=== PATIENT | female | born 1950 | race Caucasian/White ===

== ENCOUNTER 2016-05-08 07:59 | Emergency (ER) | payer OTHER ==
[~2016-05-08] VITALS: Ht 167.6 cm; Wt 63.5 kg
[~2016-05-08 07:59] MED LIST: AZIT250T PO; DEXT15DR5 EACHEYE; FLUT9.9S NS; PRED-220 PO; PRED20TA PO
[2016-05-08] MEDS ORDERED: IV NORMAL SALINE 1000ML BAG 1,000 ML IV ONE (08:45)
[2016-05-08] MEDS ORDERED: DEXAMETHASONE SOD PHOS 20 MG/5 ML VIAL. IV ONE (08:45)
[2016-05-08] MEDS ORDERED: FENTANYL PF 100 MCG/2 ML VIAL. IV ONE (08:45)
--- NOTE | 2016-05-08 08:56 | PHYS DOC ---
Past Medical History Past Medical History: Arthritis, Constipation, Hypertension Past Surgical History: Cholecystectomy Additional Past Surgical Histo: Kidney Stents x3, Rt shoulder surgery, and left carpal tunnel Alcohol Use: None Drug Use: None Adult General Chief Complaint Chief Complaint: HEADACHE HPI HPI Patient is a 65 year old female with history of arthritis, hypertension, constipation, who presents today with 8 out of 10 frontal headache that began yesterday afternoon. Patient states the headache began gradually. Patient denies any vision changes with a headache. She states she has some light sensitivity and nausea with the headache. Patient denies this being the worst headache in her life. Patient states she has had nasal congestion for almost 2 weeks. Patient was seen in the ED last week and was diagnosed with left bells palsy and was treated with prednisone. She states she still has some droopiness on the right side of the face but is improving. Patient denies any vomiting but she states she has some nausea. Denies any chest pain or shortness of breath. PCP is Dr. Garcia Review of Systems Review of Systems Constitutional: Denies fever or chills [] Eyes: Denies change in visual acuity, redness, or eye pain [] HENT: Denies nasal congestion or sore throat [] Respiratory: Denies cough or shortness of breath [] Cardiovascular: No additional information not addressed in HPI [] GI: nausea, : Denies dysuria or hematuria [] Musculoskeletal: Denies back pain or joint pain [] Integument: Denies rash or skin lesions [] Neurologic: headache, Endocrine: Denies polyuria or polydipsia [] Current Medications Current Medications Current Medications Medications (Trade) Dose Ordered Sig/Carlito Start Time Stop Time Status Last Admin Dose Admin Clonidine HCl (Catapres) 0.2 mg 1X ONCE 05/08/16 10:45 05/08/16 10:53 DC 05/08/16 10:57 0.2 MG Dexamethasone Sodium Phosphate (Decadron) 10 mg 1X ONCE 05/08/16 08:45 05/08/16 08:49 DC 05/08/16 09:29 10 MG Fentanyl Citrate 50 mcg 50 mcg 1X ONCE 05/08/16 08:45 05/08/16 08:49 DC 05/08/16 09:30 50 MCG Oxymetazoline HCl (Afrin) 2 spray 1X ONCE 05/08/16 11:15 05/08/16 11:16 DC Sodium Chloride (Iv Sodium Chloride 0.9% 1000ml Bag) 1,000 ml @ 1,000 mls/hr 1X ONCE 05/08/16 08:45 05/08/16 09:44 DC 05/08/16 09:30 1,000 MLS/HR Allergies Allergies Allergies Coded Allergies Type Severity Reaction Last Updated Verified No Known Drug Allergies 04/26/16 No Physical Exam Physical Exam Constitutional: Well developed, well nourished, no acute distress, non-toxic appearance. [] HENT: Normocephalic, atraumatic, bilateral external ears normal, oropharynx moist, no oral exudates, nose normal. [] Eyes: PERRLA, EOMI, conjunctiva normal, no discharge. [] Neck: Normal range of motion, no tenderness, supple, no stridor. [] Cardiovascular:Heart rate regular rhythm, no murmur [] Lungs & Thorax: Bilateral breath sounds clear to auscultation [] Abdomen: Bowel sounds normal, soft, no tenderness, no masses, no pulsatile masses. [] Skin: Warm, dry, no erythema, no rash. [] Back: No tenderness, no CVA tenderness. [] Extremities: No tenderness, no cyanosis, no clubbing, ROM intact, no edema. [] Neurologic: Alert and oriented X 3, normal motor function, normal sensory function, no focal deficits noted. Cranial nerves II-XII intact. Slight left facial drop noted on exam from Vick's palsy. Psychologic: Affect normal, judgement normal, mood normal. [] Current Patient Data Vital Signs Vital Signs Date Time Temp Pulse Resp B/P Pulse Ox O2 Delivery O2 Flow Rate FiO2 05/08/16 10:57 63 176/92 05/08/16 10:22 14 99 05/08/16 09:30 Room Air 05/08/16 08:20 97.9 97.9 Lab Values Laboratory Tests Test 05/08/16 09:18 05/08/16 09:20 05/08/16 10:30 Group A Streptococcus Rapid Negative (NEGATIVE) White Blood Count 6.2x10^3/uL (4.0-11.0) Red Blood Count 4.69x10^6/uL (3.50-5.40) Hemoglobin 13.2g/dL (12.0-15.5) Hematocrit 39.5% (36.0-47.0) Mean Corpuscular Volume 84fL (79-100) Mean Corpuscular Hemoglobin 28pg (25-35) Mean Corpuscular Hemoglobin Concent 33g/dL (31-37) Red Cell Distribution Width 14.7% (11.5-14.5) H Platelet Count 257x10^3/uL (140-400) Neutrophils (%) (Auto) 63% (31-73) Lymphocytes (%) (Auto) 23% (24-48) L Monocytes (%) (Auto) 9% (0-9) Eosinophils (%) (Auto) 4% (0-3) H Basophils (%) (Auto) 1% (0-3) Neutrophils # (Auto) 3.9x10^3uL (1.8-7.7) Lymphocytes # (Auto) 1.4x10^3/uL (1.0-4.8) Monocytes # (Auto) 0.6x10^3/uL (0.0-1.1) Eosinophils # (Auto) 0.3x10^3/uL (0.0-0.7) Basophils # (Auto) 0.0x10^3/uL (0.0-0.2) Prothrombin Time 13.3SEC (11.7-14.0) Prothrombin Time INR 1.1 (0.8-1.1) Sodium Level 141mmol/L (136-145) Potassium Level 3.8mmol/L (3.5-5.1) Chloride Level 107mmol/L (98-107) Carbon Dioxide Level 31mmol/L (21-32) Anion Gap 3 (6-14) L Blood Urea Nitrogen 17mg/dL (7-20) Creatinine 0.8mg/dL (0.6-1.0) Estimated GFR (Cockcroft-Gault) 71.8 BUN/Creatinine Ratio 21 (6-20) H Glucose Level 85mg/dL (70-99) Calcium Level 8.6mg/dL (8.5-10.1) Magnesium Level 2.3mg/dL (1.8-2.4) Total Bilirubin 0.9mg/dL (0.2-1.0) Aspartate Amino Transferase (AST) 22U/L (15-37) Alanine Aminotransferase (ALT) 24U/L (14-59) Alkaline Phosphatase 71U/L (46-116) Creatine Kinase 91U/L (26-192) Creatine Kinase MB (Mass) 1.2ng/mL (0.0-3.6) Creatine Kinase MB Relative Index 1.3% (0-4) Troponin I Quantitative < 0.017ng/mL (0.000-0.055) JD-Cdu-U-Type Natriuretic Peptide 67pg/mL (0-124) Total Protein 6.3g/dL (6.4-8.2) L Albumin 3.3g/dL (3.4-5.0) L Albumin/Globulin Ratio 1.1 (1.0-1.7) Lipase 158U/L (73-393) Urine Collection Type Unknown Urine Color Yellow Urine Clarity Cloudy Urine pH 7.5 Urine Specific [place] 1.010 Urine Protein Negativemg/dL (NEG-TRACE) Urine Glucose (UA) Negativemg/dL (NEG) Urine Ketones (Stick) Negativemg/dL (NEG) Urine Blood Negative (NEG) Urine Nitrite Negative (NEG) Urine Bilirubin Negative (NEG) Urine Urobilinogen Dipstick 0.2mg/dL (0.2 mg/dL) Urine Leukocyte Esterase Negative (NEG) Urine RBC 0/HPF (0-2) Urine WBC Occ/HPF (0-4) Urine Bacteria Few/HPF (0-FEW) Laboratory Tests 05/08/16 09:20 Laboratory Tests 05/08/16 09:20 EKG EKG [] Radiology/Procedures Radiology/Procedures [] Course & Med Decision Making Course & Med Decision Making Pertinent Labs and Imaging studies reviewed. (See chart for details) Patient is in the ED with a headache that began yesterday. Patient denies this being the worst headache in her life. She has had nasal congestion for almost 2 weeks, she was seen in the ED a week ago and was diagnosed with [place] palsy and was discharged on prednisone. 09:[address] Bruce sinus rate them, heart rate 66, leftward axis, QRS interval 84, no STEMI. CBC BMP troponin CK-MB are normal, chest x-ray and CT of the head interpreted by radiologist are negative for any acute findings. Patient's headache is consistent with a sinus headache especially with her history of nasal congestion for 2 weeks. She was treated with antibiotics. She just completed a dose of prednisone. Her blood pressure was noted to be in the 190s over 90, she states she used to have history of hypertension was on medication and her PCP took her off the medication. I highly recommended she follows up with the PCP in the next 1-3 days to be evaluated for her symptoms including possibility of hypertension. Dr. Bruce also saw patient. She was discharged with Afrin. She was provided return precautions and discharged in stable condition. Dragon Disclaimer Dragon Disclaimer This electronic medical record was generated, in whole or in part, using a voice recognition dictation system. Departure Departure Impression: Primary Impression: Sinusitis Additional Impression: Headache Disposition: HOME, SELF-CARE Condition: STABLE Referrals: CARMITA GARCIA MD (PCP) follow up with your primary care doctor in the next 1-3 days JACKIE LUNA MD see him in the next 1-3 days Patient Instructions: General Headache Without Cause, Sinus Headache Additional Instructions: You were seen for a headache since yesterday. Your work up is negative. Your sinusitis with congestion could be causing your headache. We recommend you follow-up with the provided urologist in the next 1-3 days. Come back to the emergency room if symptoms worsen. Use the Afrin provided twice a day. Scripts Hydrocodone/Apap 5-325 ([place] 5-325 Tablet)1 Each Tablet1-2 Tab PO Q4-6HRS #14 TAB Prov:CALEB WOODARD APRN 05/08/16 Problem Qualifiers Primary Impression: Sinusitis Sinusitis location: frontal Chronicity: subacute Qualified Code: J01.10 - Acute frontal sinusitis, unspecified Additional Impression: Headache Headache type: unspecified Headache chronicity pattern: acute headache Intractability: not intractable Qualified Code: R51 - Headache CALEB WOODARD APRN May 08, 2016 08:56
--- NOTE | 2016-05-08 09:20 | EKG ---
[facility] [address] [place] [address] Test Date: 2016-05-08 Test Time: 09:09:31 Pat Name: DANIELITO MILLER Department: Room: Gender: F [employer] Changer: : 1950 Requested By: CALEB WOODARD Order Number: [id number] Reading MD: Measurements Intervals [place] Rate: 66 P: 49 OR: 176 QRS: 23 QRSD: 84 T: 27 QT: 390 QTc: 411 Interpretive Statements SINUS RHYTHM NORMAL ECG RI6.01 No previous ECG available for comparison
[2016-05-08 09:38] LABS: BASO % 1 % (0-3); EOS % 4 % (0-3); HEMATOCRIT 39.5 % (36.0-47.0); HEMOGLOBIN 13.2 g/dL (12.0-15.5); LYMPH # 1.4 x10^3/uL (1.0-4.8); LYMPH % 23 % (24-48); MEAN CORPUSCULAR HEMOGLOBIN 28 pg (25-35); MEAN CORPUSCULAR HGB CONC 33 g/dL (31-37); MEAN CORPUSCULAR VOLUME 84 fL (79-100); MONO % 9 % (0-9); NEUT % 63 % (31-73); PLATELET COUNT 257 x10^3/uL (140-400); RED BLOOD COUNT 4.69 x10^6/uL (3.50-5.40); RED CELL DISTRIBUTION WIDTH 14.7 % (11.5-14.5); WHITE BLOOD COUNT 6.2 x10^3/uL (4.0-11.0)
[2016-05-08 09:41] LABS: CALCIUM 8.6 mg/dL (8.5-10.1); CREATININE 0.8 mg/dL (0.6-1.0); GFR 71.8; POTASSIUM 3.8 mmol/L (3.5-5.1)
--- NOTE | 2016-05-08 09:48 | RAD ---
Exam: AP portable chest. History: Headache. Comparison: None. Findings: The heart and mediastinal structures are within normal limits for size. Lungs are without infiltrate. No pneumothorax or pleural effusion is appreciated. Impression: 1. No acute cardiopulmonary process.
[2016-05-08 09:49] LABS: ALBUMIN 3.3 g/dL (3.4-5.0); ALBUMIN/GLOBULIN RATIO 1.1 (1.0-1.7); MAGNESIUM 2.3 mg/dL (1.8-2.4); TOTAL BILIRUBIN 0.9 mg/dL (0.2-1.0); TOTAL PROTEIN 6.3 g/dL (6.4-8.2)
[2016-05-08 09:51] LABS: INR 1.1 (0.8-1.1); PROTHROMBIN TIME PATIENT 13.3 SEC (11.7-14.0)
[2016-05-08 09:55] LABS: CKMB INDEX 1.3 % (0-4); CKMB MASS 1.2 ng/mL (0.0-3.6)
--- NOTE | 2016-05-08 10:02 | RAD ---
EXAM: Head CT without contrast. HISTORY: Headache. TECHNIQUE: Computed tomographic images of the head were obtained without contrast. COMPARISON: None. FINDINGS: There is no acute or subacute extra-axial or intraparenchymal hemorrhage. There is no mass effect or midline shift. There is no hydrocephalus. The garcia-white matter differentiation pattern is intact. The visualized portions of the orbits, paranasal sinuses and mastoid air cells are unremarkable. No suspicious calvarial lesion is seen. IMPRESSION: No acute intracranial findings. PQRS Compliance Statement: One or more of the following individualized dose reduction techniques were utilized for this examination: 1. Automated exposure control 2. Adjustment of the mA and/or kV according to patient size 3. Use of iterative reconstruction technique
[2016-05-08 10:44] LABS: BILIRUBIN,URINE NEGATIVE (NEG); GLUCOSE,URINE NEGATIVE (NEG); NITRITE,URINE NEGATIVE (NEG); PH,URINE 7.5; PROTEIN,URINE NEGATIVE (NEG-TRACE); UROBILINOGEN,URINE 0.2 mg/dL (0.2 mg/dL)
[2016-05-08] MEDS ORDERED: CLONIDINE HCL 0.1 MG TABLET PO ONE (10:45)
[2016-05-08 10:47] LABS: NEGATIVE OBC STREP NEG; POSITIVE OBC STREP POS
[2016-05-08 11:13] LABS: BACTERIA,URINE FEW /HPF (0-FEW); RBC,URINE 0 /HPF (0-2); WBC,URINE OCC /HPF (0-4)
[2016-05-08] MEDS ORDERED: OXYMETAZOLINE 0.05% NASAL SPRAY 30ML BOTTLE. NS ONE (11:15)
[2016-05-08 11:30] VITALS: BP 173/89
[2016-05-08] MEDS ORDERED: HYDR-971 PO (11:30)
== END 2016-05-08 11:45 | disposition home or self-care (01) ==
LOC: ER 07:59
DX: R51 Headache (principal); J01.10 Acute frontal sinusitis, unspecified; I10 Essential (primary) hypertension
CPT/HCPCS: 36415; 70450; 71010; 80053; 81001; 82553; 83690; 83735; 83880; 84484; 85027; 85610; 87070; 87880; 93005; 96361; 96374; 96375; 99285; J1100; J3010; J7030

== ENCOUNTER 2016-07-25 01:04 | Emergency (ER) | payer OTHER ==
[~2016-07-25] VITALS: Ht 165.1 cm; Wt 62.6 kg
[2016-07-25] MEDS ORDERED: LABETALOL 20 MG/4 ML DISP.SYRIN. IVP ONE (01:30)
--- NOTE | 2016-07-25 01:33 | PHYS DOC ---
Past Medical History Past Medical History: Arthritis, Constipation, Hypertension Additional Past Medical Histor: josette reyes Past Surgical History: Cholecystectomy Additional Past Surgical Histo: Kidney Stents x3, Rt shoulder surgery, and left carpal tunnel Alcohol Use: None Drug Use: None Adult General Chief Complaint Chief Complaint: HEADACHE HPI HPI 65-year-old female presenting to the emergency department today with a headache. Her headache is been present for more than 24 hours. She denies it being sudden in onset or thunderclap in nature. She describes it as a sharp pain in the front of her sinuses that are nonradiating. She describes it as a pressure. It is moderate to severe. It is not associated with numbness weakness tingling or vision changes. She denies fevers or neck stiffness at home. She currently is being followed by Dr. Caruso our neurologist. Review of systems is negative for chest pain shortness of breath focal neurologic deficits. She denies numbness weakness tingling or vision changes. All other review of systems is negative unless otherwise noted in history of present illness. Review of Systems Review of Systems SEE ABOVE. Current Medications Current Medications Current Medications Medications (Trade) Dose Ordered Sig/Carlito Start Time Stop Time Status Last Admin Dose Admin Diphenhydramine HCl 50 mg 50 mg 1X ONCE 07/25/16 02:00 07/25/16 02:01 07/25/16 01:35 50 MG Labetalol HCl (Normodyne) 10 mg 1X ONCE 07/25/16 01:30 07/25/16 01:31 DC Metoclopramide HCl (Reglan) 20 mg 1X ONCE 07/25/16 02:00 07/25/16 02:01 07/25/16 01:35 20 MG Sodium Chloride (Iv Sodium Chloride 0.9% 1000ml Bag) 1,000 ml @ 1,000 mls/hr 1X ONCE 07/25/16 02:00 07/25/16 02:59 07/25/16 01:37 1,000 MLS/HR Allergies Allergies Allergies Coded Allergies Type Severity Reaction Last Updated Verified No Known Drug Allergies 04/26/16 No Physical Exam Physical Exam Constitutional: Well developed, well nourished, no acute distress, non-toxic appearance. [] HENT: Normocephalic, atraumatic, bilateral external ears normal, oropharynx moist, no oral exudates, nose normal. Eyes: PERRLA, EOMI, conjunctiva normal, no discharge. [] Neck: Normal range of motion, no tenderness, supple, no stridor. Cardiovascular:Heart rate regular rhythm, no murmur [] Lungs & Thorax: Bilateral breath sounds clear to auscultation [] Abdomen: Bowel sounds normal, soft, no tenderness, no masses, no pulsatile masses. Skin: Warm, dry, no erythema, no rash. [] Back: No tenderness, no CVA tenderness. [] Extremities: No tenderness, no cyanosis, no clubbing, ROM intact, no edema. Neurologic: Mental status: Awake oriented and alert x3 Cranial nerves: Extraocular movements intact, eyebrows sadie bilaterally smile symmetric, uvula elevation, shoulder shrug intact, tongue protrusion normal Sensation: equal and normal in all extremities Strength: 5/5 in upper and lower extremities bilaterally Psychologic: Affect normal, judgement normal, mood normal. [] Current Patient Data Vital Signs Vital Signs Date Time Temp Pulse Resp B/P Pulse Ox O2 Delivery O2 Flow Rate FiO2 07/25/16 01:10 98.1 65 18 177/87 98 Room Air 98.1 EKG EKG [] Radiology/Procedures Radiology/Procedures [] Course & Med Decision Making Course & Med Decision Making Pertinent Labs and Imaging studies reviewed. (See chart for details) 65-year-old female presenting to the emergency department with a headache today. Afebrile in the emergency department with normal range of motion of the neck. Pertinent physical exam shows a nontender temporal artery. No vision changes reported by the patient. Patient was hypertensive. She was given IV fluids Reglan and Benadryl. On reexamination the patient's symptoms had improved significantly. She was subsequent discharged home to follow up with her primary care physician and neurology team for treatment and workup of her headaches. Dragon Disclaimer Dragon Disclaimer This electronic medical record was generated, in whole or in part, using a voice recognition dictation system. Departure Departure Impression: Primary Impression: Headache Disposition: HOME, SELF-CARE Condition: STABLE Referrals: CARMITA NUNEZ MD (PCP) Patient Instructions: General Headache Without Cause, [id number] Additional Instructions: Thank you for allowing us to participate in your care today. Followup with your primary care physician in 3 days if your symptoms do not improve. Follow up with you primary care doctor for chronic blood pressure management. If you do not have a primary care provider you can ask for a list of our primary care providers. Return to the emergency department you have any new or concerning findings. This should be evaluated by the primary care physician and any necessary consulting services for continued management within a few days after discharge. Return to emergency room if you have any new or concerning symptoms including but not limited to fever, chills, nausea, vomiting, intractable pain, any new rashes, chest pain, shortness of air, uncontrolled bleeding, difficulty breathing, and/or vision loss. ENMANUEL APONTE MD Jul 25, 2016 01:33
[2016-07-25] MEDS ORDERED: METOCLOPRAMIDE HCL 10 MG/2 ML VIAL. IV ONE (02:00)
[2016-07-25] MEDS ORDERED: DIPHENHYDRAMINE 50 MG/ML VIAL IVP ONE (02:00)
[2016-07-25] MEDS ORDERED: IV NORMAL SALINE 1000ML BAG 1,000 ML IV ONE (02:00)
[2016-07-25 02:22] VITALS: BP 154/80
== END 2016-07-25 02:33 | disposition home or self-care (01) ==
LOC: ER 01:04
DX: R51 Headache (principal); I10 Essential (primary) hypertension; M19.90 Unspecified osteoarthritis, unspecified site; G51.0 Bell's palsy
CPT/HCPCS: 96361; 96374; 96375; 99284; J1200; J2765; J7030

== ENCOUNTER → 2016-07-25 | Outpatient (CLI) | payer OTHER ==
[~2016-07-25] MED LIST changes: +HYDR-971 PO
[2016-07-25 02:22] VITALS: BP 154/80
--- NOTE | 2016-07-25 10:54 | RAD ---
PROCEDURE MRI brain without contrast. HISTORY Worsening migraine headaches over the last 2 years. Migraine headaches occur both with and without aura. TECHNIQUE Sagittal T1, axial T1, axial T2, axial FLAIR, axial T2 gradient, coronal T2, and diffusion imaging with ADC map were performed. COMPARISON CT head May 08, 2016. FINDINGS The ventricles and sulci are within normal limits for age. A few scattered FLAIR hyperintensities are noted in the supratentorial white matter, nonspecific but most suggestive of minimal small vessel ischemic disease in a patient of this age. There is no acute intracranial hemorrhage or extra-axial fluid collection. There is no mass effect or midline shift. There is no restricted diffusion to suggest an acute infarct. Cerebellar tonsils extend 2 millimeters below the foramina magnum. Pituitary and suprasellar region are unremarkable. Intracranial flow voids are preserved. There is minimal ethmoid mucosal thickening. There are middle turbinate vahid bullosa. There is slight nasal septal deviation to the right. IMPRESSION 1. No acute intracranial findings. 2. Minimal probable small-vessel ischemic disease. Electronically signed by: Shlomo Beavers MD (Jul 25, 2016 10:52:45)
== END | disposition home or self-care (01) ==
LOC: MRI 08:31
PROVIDERS: ATTEND Psychiatry & Neurology Neurology with Special Qualifications in Child Neurology
DX: G43.009 Migraine without aura, not intractable, without status migrainosus (principal)
CPT/HCPCS: 70551

== ENCOUNTER 2017-03-11 13:50 | Emergency (ER) | payer OTHER ==
[~2017-03-11] VITALS: Ht 165.1 cm; Wt 61.2 kg
[2017-03-11 14:15] VITALS: BP 163/81
--- NOTE | 2017-03-11 14:44 | PHYS DOC ---
Past Medical History Past Medical History: Arthritis, Constipation, Hypertension, Kidney Stone Additional Past Medical Histor: josette reyes Past Surgical History: Cholecystectomy Additional Past Surgical Histo: Kidney Stents x3, Rt shoulder surgery, and left carpal tunnel Alcohol Use: None Drug Use: None Adult General Chief Complaint Chief Complaint: KNEE INJURY HPI HPI Patient is a 66 year old female presents to the emergency department with a history falling yesterday. Patient states she went to get her Rola out of car , did not turn the outside light on and tripped over a branch. She state she landed on her left knee, right and and hit her face. Denies LOC, denies neck pain. She presents today for left knee pain. Review of Systems Review of Systems Constitutional: Denies fever or chills [] Eyes: Denies change in visual acuity, redness, or eye pain [] HENT: Denies nasal congestion or sore throat [] Respiratory: Denies cough or shortness of breath [] Cardiovascular: No additional information not addressed in HPI [] GI: Denies abdominal pain, nausea, vomiting, bloody stools or diarrhea [] : Denies dysuria or hematuria [] Musculoskeletal: Denies back pain. C/o left knee pain Integument: Denies rash or skin lesions [] Neurologic: Denies headache, focal weakness or sensory changes [] Endocrine: Denies polyuria or polydipsia [] All other systems were reviewed and found to be within normal limits, except as documented in this note. Current Medications Current Medications Current Medications Medications (Trade) Dose Ordered Sig/Carlito Start Time Stop Time Status Last Admin Dose Admin Diphtheria/ Tetanus/Acell Pertussis (Boostrix) 0.5 ml ONCE ONCE 03/11/17 14:45 03/11/17 14:47 DC Allergies Allergies Allergies Coded Allergies Type Severity Reaction Last Updated Verified No Known Drug Allergies 04/26/16 No Physical Exam Physical Exam Constitutional: Well developed, well nourished, no acute distress, non-toxic appearance. [] HENT: Normocephalic, atraumatic, bilateral external ears normal, oropharynx moist, no oral exudates, nose normal. [] Eyes: PERRLA, EOMI, conjunctiva normal, no discharge. [] Neck: Normal range of motion, no tenderness, supple, no stridor. [] Cardiovascular:Heart rate regular rhythm, no murmur [] Lungs & Thorax: Bilateral breath sounds clear to auscultation [] Skin: Warm, dry, no erythema, no rash. Abrasion left knee Back: No cervical spine, no thoracic spine, no lumbar spine tenderness, no crepitus no deformity noted, no CVA tenderness. [] Extremities: Left knee tenderness, no cyanosis, no clubbing, ROM intact, no edema. Negative emma, negative vargus, negative valgus Neurologic: Alert and oriented X 3, normal motor function, normal sensory function, no focal deficits noted. [] Psychologic: Affect normal, judgement normal, mood normal. [] Current Patient Data Vital Signs Vital Signs Date Time Temp Pulse Resp B/P (MAP) Pulse Ox O2 Delivery O2 Flow Rate FiO2 03/11/17 14:15 98.2 63 18 96 Room Air 98.2 EKG EKG [] Radiology/Procedures Radiology/Procedures [][facility] [address] [place], [place] [id number] IMAGING REPORT Signed PATIENT: DANIELITO MILLER ACCOUNT: [id number] : 1950 LOCATION: ER AGE: 66 SEX: F EXAM STATUS: REG ER ORD. PHYSICIAN: CLARKE MURRAY APRN REASON: knee pain after falling PROCEDURE: KNEE LEFT 4V 4 views left knee 03/11/2017 Clinical indication: Pain status post left knee injury. Comparison: Left knee radiographs 09/24/2005. Findings: No acute fracture or traumatic malalignment. Joint spaces are maintained. Normal bony alignment. No significant knee joint effusion. Impression: No acute osseous abnormality. DICTATED and SIGNED BY: KALE SALDANA MD DATE: 03/11/17 1448 CC: CLARKE MURRAY APRN; CARMITA NUNEZ MD; NON,STAFF ~ Course & Med Decision Making Course & Med Decision Making Pertinent Labs and Imaging studies reviewed. (See chart for details) X-rays were negative for any bony abnormalities per radiology. Patient will be placed in a Valeriy wrap with recommendations for Tylenol or ibuprofen for pain and discomfort. Ice packs 20 minutes several times a day elevation as much as possible. []I've spoken with the patient and/or caregivers. I've explained the patient's condition, diagnosis and treatment plan based on information available to me at this time. I've answered the patient's and/or caregivers questions and addressed any concerns. The patient and/or caregivers have a good understanding the patient's diagnosis, condition and treatment plan as can be expected at this point. Vital signs have been stabilized. The patient's condition is stable for discharge from the emergency department. The patient will pursue further outpatient evaluation with her primary care provider or other designated consulting physician as outlined in the discharge instructions. Patient and/or caregivers are agreeable to this plan of care and follow-up instructions have been explained in detail. The patient and/or caregivers have received these instructions in written format and expressed understanding of these discharge instructions. The patient and her caregivers are aware that if any significant change in condition or worsening of symptoms should prompt him to immediately return to this of the closest emergency department. If an emergent department is not readily available I would encourage him to call 911. Dragon Disclaimer Dragon Disclaimer This electronic medical record was generated, in whole or in part, using a voice recognition dictation system. Departure Departure Impression: Primary Impression: Knee pain, left Disposition: HOME, SELF-CARE Condition: STABLE Referrals: CARMITA NUNEZ MD (PCP) Patient Instructions: Knee Pain, [id number], RICE - Routine Care for Injuries , [id number] Additional Instructions: Activity as tolerated Medication as prescribed Wear the valeriy wrap for comfort for the next 5-7 days Ice packs on 20 minutes and off 20 minutes several times a day Wash the abrasion with soap and water and apply antibiotic ointment over the area Watch for signs and symptoms of infection: redness, warmth, tenderness or any yellow/greenish drainage that may be noted. Followup with primary care provider as needed Return to emergency department as needed for signs and symptoms that become worse. Problem Qualifiers Primary Impression: Knee pain, left Chronicity: acute Qualified Codes: M25.562 - Pain in left knee CLARKE MURRAY ACID PUMP OPERATOR Mar 11, 2017 14:44
[2017-03-11] MEDS ORDERED: DIPHTH,PERTUSS(ACELL),TET TOX 0.5 ML DISP.SYRIN. VAX IM ONE (14:45)
--- NOTE | 2017-03-11 14:53 | RAD ---
4 views left knee 03/11/2017 Clinical indication: Pain status post left knee injury. Comparison: Left knee radiographs 09/24/2005. Findings: No acute fracture or traumatic malalignment. Joint spaces are maintained. Normal bony alignment. No significant knee joint effusion. Impression: No acute osseous abnormality.
== END 2017-03-11 15:06 | disposition home or self-care (01) ==
LOC: ER 13:50
DX: M25.562 Pain in left knee (principal); I10 Essential (primary) hypertension; G51.0 Bell's palsy; Z90.49 Acquired absence of other specified parts of digestive tract
CPT/HCPCS: 73564; 90471; 90715; 99284-25

== ENCOUNTER → 2017-07-01 | Outpatient (CLI) | payer OTHER | END | disposition home or self-care (01) | LOC: MAMMO 14:43 | DX: Z12.31 Encounter for screening mammogram for malignant neoplasm of breast (principal) | CPT/HCPCS: 77063; 77067 ==

== ENCOUNTER → 2017-08-04 | Outpatient (CLI) | payer OTHER ==
[2017-08-04 10:15] LABS: ALBUMIN 3.6 g/dL (3.4-5.0); ALBUMIN/GLOBULIN RATIO 1.1 (1.0-1.7); ALK PHOS 68 U/L (46-116); ALT (SGPT) 25 U/L (14-59); ANION GAP 4 (6-14); AST (SGOT) 27 U/L (15-37); BLOOD UREA NITROGEN 21 mg/dL (7-20); BUN/CREATININE RATIO 26 (6-20); CALCIUM 9.3 mg/dL (8.5-10.1); CARBON DIOXIDE 32 mmol/L (21-32); CHLORIDE 108 mmol/L (98-107); CHOLESTEROL 185 mg/dL (0-200); CREATININE 0.8 mg/dL (0.6-1.0); GFR 71.5; GLUCOSE 85 mg/dL (70-99); HDLC 69 mg/dL (40-60); LDLC 104 mg/dL (0-100); NON-HDL CHOLESTEROL 116 mg/dL (0-129); POTASSIUM 4.3 mmol/L (3.5-5.1); SODIUM 144 mmol/L (136-145); TOTAL PROTEIN 6.8 g/dL (6.4-8.2); TRIGLYCERIDES 59 mg/dL (0-150); VLDLC 12 mg/dL (0-40)
[2017-08-04 10:16] LABS: CHOLESTEROL/HDL RATIO 2.7
== END | disposition home or self-care (01) ==
LOC: LAB 09:35
DX: I10 Essential (primary) hypertension (principal); I67.9 Cerebrovascular disease, unspecified
CPT/HCPCS: 36415; 80053; 80061

== ENCOUNTER → 2018-07-06 | Outpatient (CLI) | payer OTHER ==
[~2018-07-06] MED LIST changes: +HYDR-3164 PO; -HYDR-971 PO
--- NOTE | 2018-07-06 16:16 | RAD ---
DATE: 07/06/2018 EXAM: MAMMO PHU SCREENING BILATERAL HISTORY: Routine screening COMPARISON: 07/01/2017 This study was interpreted with the benefit of Computerized Aided Detection (CAD). Breast Density: SCATTERED The breast parenchyma shows scattered fibroglandular densities. Breast parenchyma level B. FINDINGS: 2-D and 3-D tomosynthesis imaging was performed in CC and MLO projections. No new or enlarging breast densities are seen. Minimal benign type calcifications are present. No suspicious microcalcifications have developed. IMPRESSION: Stable mammograms without evidence of malignancy. BI-RADS CATEGORY: 2 BENIGN FINDING(S) RECOMMENDED FOLLOW-UP: 12M 12 MONTH FOLLOW-UP PQRS compliance statement: Patient information was entered into a reminder system with a target due date for the next mammogram. Mammography is a sensitive method for finding small breast cancers, but it does not detect them all and is not a substitute for careful clinical examination. A negative mammogram does not negate a clinically suspicious finding and should not result in delay in biopsying a clinically suspicious abnormality. "Our facility is accredited by the [employer] Mammography Program."
== END | disposition home or self-care (01) ==
LOC: MAMMO 15:05
PROVIDERS: ATTEND Family Medicine
DX: Z12.31 Encounter for screening mammogram for malignant neoplasm of breast (principal)
CPT/HCPCS: 77063; 77067

== ENCOUNTER → 2018-10-12 | Outpatient (CLI) | payer OTHER ==
[~2018-10-12] MED LIST changes: +FOLI200T13 PO; +GLUC1CAP48 PO; +L GA1CAP2 PO; +NADO40TA PO; +POLY17PO29 PO
== END | disposition home or self-care (01) ==
LOC: LAB 07:39
PROVIDERS: ATTEND Family Medicine
DX: R53.83 Other fatigue (principal)
CPT/HCPCS: 36415; 84436; 84443

== ENCOUNTER 2018-10-16 10:38 | Day surgery (SDC) | payer OTHER ==
[~2018-10-16 10:38] MED LIST changes: +BALANCED SALT IRRIG OPHTH SOLN 15 ML BOTTLE. ONE; +CIPROFLOXACIN 0.3% OPHTH SOLUTION 5ML BOTTLE. OD ONE; +HYDROmorphone 2 MG/ML VIAL IV PRN; +IV RINGERS,LACTATED 1000ML 1,000 ML IV SCH; +LIDOCAINE 2% JELLY 6ML IN APPLICATOR. TP SCH; +MORPHINE SULFATE 2 MG/ML VIAL. IV PRN; +NEO/POLYMYX/DEXAMETH OPHTH OINTMENT 3.5GM TUBE. ONE; +ONDANSETRON PF 4 MG/2 ML VIAL. IV PRN; +PROCHLORPERAZINE 10 MG/2 ML VIAL. IV PRN; +PROPARACAINE 0.5% OPHTH SOLUTION 15ML BOTTLE. OD ONE; +fentaNYL PF VIAL 100 MCG/2 ML VIAL IV PRN
[2018-10-16] MEDS ORDERED: LIDOCAINE 1% PF 2 ML VIAL. ONE (10:39)
[2018-10-16] MEDS ORDERED: CHONDROIT-SOD-HYALURONATE KIT. ONE (10:40)
[2018-10-16] MEDS: CYCLOPENTOLATE 1% OPTH SOLUTION 2ML BOTTLE. OD SCH ×3 (11:20→11:39)
[2018-10-16] MEDS: PHENYLEPHRINE 10% OPHTH SOLUTION 5ML BOTTLE. OD SCH ×3 (11:21→11:39)
[2018-10-16 12:58] VITALS: BP 166/77
--- NOTE | 2018-10-16 13:29 | OP ---
DATE OF SURGERY: 10/16/2018 PREOPERATIVE DIAGNOSIS: Senile cataract, right eye. POSTOPERATIVE DIAGNOSIS: Senile cataract, right eye. PROCEDURE: Phacoemulsification with posterior chamber lens implant, right eye. ANESTHESIA: Topical with MAC. DESCRIPTION OF PROCEDURE: The patient's dilating and anesthetic drops were applied in the outpatient department and the [place] balloon cuff used for about 10 minutes. The patient was then brought to the operating room, positioned on the table and the right eye was prepped and draped in the usual sterile manner for an intraocular procedure. A lid speculum was placed between the eyelids and the operating microscope was brought into position and it was noted that there was very good pupillary dilation. A paracentesis incision was made superior temporally and an injection of Viscoat was made to form the anterior chamber. A 2.4 mm temporal incision was then made. A capsulorrhexis was made about the dilated pupillary border, about 5.5 to 6 mm in diameter. The lens nucleus was hydrodissected and then the nucleus phacoemulsified using the phaco hand piece and this was done without difficulty. The cortical material was aspirated with the I/A handpiece. The bag was then insufflated with Provisc and a posterior chamber lens placed in the bag without difficulty. The Provisc was aspirated with the I/A handpiece and then the eye was pressurized without difficulty. The wound was checked for leaks and there were none. The speculum and drape were removed and Maxitrol ointment instilled in the conjunctival sac and the eye was shielded. The patient was taken to the recovery room in satisfactory condition. There were no complications and I will see the patient in 3 days in my office and we will make phone contact with her tomorrow. K FLOWER SANCHEZ MD DR: ALYSIA/armando JOB#: [id number] / [id number] JOE
== END 2018-10-16 13:25 | disposition home or self-care (01) ==
LOC: SURG 10:38
PROVIDERS: ATTEND Ophthalmology
DX: H25.811 Combined forms of age-related cataract, right eye (principal); H52.01 Hypermetropia, right eye; I10 Essential (primary) hypertension; G43.909 Migraine, unspecified, not intractable, without status migrainosus; M19.90 Unspecified osteoarthritis, unspecified site; G51.0 Bell's palsy; Z88.9 Allergy status to unspecified drugs, medicaments and biological substances; Z87.891 Personal history of nicotine dependence; Z98.890 Other specified postprocedural states; Z83.518 Family history of other specified eye disorder
CPT/HCPCS: 66984; J0171; C1780

== ENCOUNTER 2018-10-23 10:41 | Day surgery (SDC) | payer OTHER ==
[~2018-10-23 10:41] MED LIST changes: -BALANCED SALT IRRIG OPHTH SOLN 15 ML BOTTLE. ONE; +CHONDROIT-SOD-HYALURONATE KIT. ONE; -CIPROFLOXACIN 0.3% OPHTH SOLUTION 5ML BOTTLE. OD ONE; -HYDROmorphone 2 MG/ML VIAL IV PRN; +LEVO25TA4 PO; -LIDOCAINE 2% JELLY 6ML IN APPLICATOR. TP SCH; -MORPHINE SULFATE 2 MG/ML VIAL. IV PRN; -ONDANSETRON PF 4 MG/2 ML VIAL. IV PRN; -PROCHLORPERAZINE 10 MG/2 ML VIAL. IV PRN; -PROPARACAINE 0.5% OPHTH SOLUTION 15ML BOTTLE. OD ONE; -fentaNYL PF VIAL 100 MCG/2 ML VIAL IV PRN
[2018-10-23] MEDS ORDERED: LIDOCAINE 1% PF 2 ML VIAL. ONE (11:11)
[2018-10-23] MEDS: PHENYLEPHRINE 10% OPHTH SOLUTION 5ML BOTTLE. OS SCH ×3 (12:08→12:19)
[2018-10-23] MEDS: CYCLOPENTOLATE 1% OPTH SOLUTION 2ML BOTTLE. OS SCH ×3 (12:08→12:19)
[2018-10-23] MEDS: CIPROFLOXACIN 0.3% OPHTH SOLUTION 5ML BOTTLE. OS ONE ×2 (12:08→12:20)
[2018-10-23] MEDS ORDERED: PROPARACAINE 0.5% OPHTH SOLUTION 15ML BOTTLE. OS ONE (12:30)
[2018-10-23] MEDS ORDERED: LIDOCAINE 2% JELLY 6ML IN APPLICATOR. MM SCH (12:30)
[2018-10-23] MEDS ORDERED: LIDOCAINE 1% PF 2 ML VIAL. INJ ONE (12:50)
[2018-10-23] MEDS ORDERED: CHONDROIT-SOD-HYALURONATE KIT. OS ONE (12:50)
[2018-10-23] MEDS ORDERED: NEO/POLYMYX/DEXAMETH OPHTH OINTMENT 3.5GM TUBE. OS ONE (13:00)
[2018-10-23 13:12] VITALS: BP 165/77
--- NOTE | 2018-10-23 13:31 | OP ---
DATE OF SURGERY: 10/23/2018 PREOPERATIVE DIAGNOSIS: Senile cataract, left eye. POSTOPERATIVE DIAGNOSIS: Senile cataract, left eye. PROCEDURE: Phacoemulsification with posterior chamber lens implant, left eye. ANESTHESIA: Topical with MAC. DESCRIPTION OF PROCEDURE: The patient's dilating and anesthetic drops were applied in the outpatient department and the [place] balloon cuff was used for about 10 minutes. The patient was then brought to the operating room and positioned on the table and the left eye was prepped and draped in the usual sterile manner for an intraocular procedure. A lid speculum was placed between the eyelids and the operating microscope was brought into position. It was noted that there was a very good pupillary dilation. A paracentesis incision was made inferior temporally and then an injection of Viscoat was made to form the anterior chamber. A 2.4 mm incision was then made. A capsulorrhexis was made about the dilated pupillary border, about 5.5-6 mm in diameter. The lens nucleus was then hydrodissected and phacoemulsified using the phaco handpiece and this was done without difficulty. The cortical material was aspirated with the I/A handpiece. The bag was then insufflated with Provisc and a posterior chamber lens was placed in the bag without difficulty. The Provisc was then aspirated with the I/A handpiece and the eye was pressurized without difficulty. The wound was checked for leaks and there were none. The speculum and drape were removed and Maxitrol ointment instilled into the conjunctival sac and the eye was shielded. The patient was taken to the recovery room in satisfactory condition. There were no complications and I will see the patient in several days in my office. K FLOWER SANCHEZ MD DR: ALYSIA/armando JOB#: [id number] / [id number] JOE
== END 2018-10-23 13:28 | disposition home or self-care (01) ==
LOC: SURG 10:41
PROVIDERS: ATTEND Ophthalmology
DX: H25.9 Unspecified age-related cataract (principal); I10 Essential (primary) hypertension; G43.909 Migraine, unspecified, not intractable, without status migrainosus; Z98.890 Other specified postprocedural states; Z87.891 Personal history of nicotine dependence
CPT/HCPCS: 66984; C1780; J0171

== ENCOUNTER → 2018-11-16 | Outpatient (CLI) | payer OTHER ==
[2018-10-23 13:12] VITALS: BP 165/77
[~2018-11-16] MED LIST changes: -CHONDROIT-SOD-HYALURONATE KIT. ONE; -IV RINGERS,LACTATED 1000ML 1,000 ML IV SCH; -NEO/POLYMYX/DEXAMETH OPHTH OINTMENT 3.5GM TUBE. ONE
== END | disposition home or self-care (01) ==
LOC: LAB 07:16
PROVIDERS: ATTEND Family Medicine
DX: E03.9 Hypothyroidism, unspecified (principal)
CPT/HCPCS: 36415; 84443

== ENCOUNTER 2019-03-06 04:45 | Emergency (ER) | payer OTHER ==
[~2019-03-06] VITALS: Ht 162.6 cm; Wt 63.5 kg
--- NOTE | 2019-03-06 05:00 | PHYS DOC ---
Past Medical History Past Medical History: Arthritis, Constipation, Hypertension, Kidney Stone Additional Past Medical Histor: josette reyes (KATARINA HILL MD) Past Surgical History: Cholecystectomy Additional Past Surgical Histo: Kidney Stents x3, Rt shoulder surgery, and left carpal tunnel (KATARINA HILL MD) Alcohol Use: None Drug Use: None (KATARINA HILL MD) Adult General Chief Complaint Chief Complaint: FLU SYMPTOM HPI HPI Patient is a 68 year old female presents emergency partly complaints of myalgias, headache, fever. Patient describes nausea, vomiting, abdominal pain which started on however subsequently resolved. She states over the last couple days she has not been able to kick her symptoms. She states she's h ad limited oral intake, states she just not been hungry. She denies any current diarrhea at this time. Denies any abdominal pain on examination today. She does describe a cough with mild phlegm production. Nothing makes her symptoms worse, nothing makes her symptoms better. Patient states she's not taking her home medications at least 3 days. (KATARINA HILL MD) Review of Systems Review of Systems Constitutional: chills/fever Eyes: Denies change in visual acuity, redness, or eye pain [] HENT: + congestino Respiratory: cough with phlegm Cardiovascular: No additional information not addressed in HPI [] GI: Denies abdominal pain, nausea, vomiting, bloody stools or diarrhea - she did have abdominal symptoms on [] : Denies dysuria or hematuria [] Musculoskeletal: + myalgias Integument: Denies rash or skin lesions [] Neurologic: Denies headache, focal weakness or sensory changes [] All other systems were reviewed and found to be within normal limits, except as documented in this note. (KATARINA HILL MD) Current Medications Current Medications Current Medications Medications (Trade) Dose Ordered Sig/Carlito Start Time Stop Time Status Last Admin Dose Admin Acetaminophen (Tylenol) 1,000 mg 1X ONCE 03/06/19 05:30 03/06/19 05:31 DC 03/06/19 05:20 1,000 MG Ceftriaxone Sodium (Rocephin) 1 gm 1X ONCE 03/06/19 06:30 03/06/19 06:31 DC 03/06/19 06:28 1 GM Doxycycline Hyclate (Vibra-Tab) 100 mg 1X ONCE 03/06/19 06:30 03/06/19 06:31 DC 03/06/19 06:27 100 MG Ketorolac Tromethamine (Toradol 30mg Vial) 30 mg 1X ONCE 03/06/19 06:00 03/06/19 06:01 DC 03/06/19 05:52 30 MG Sodium Chloride 1,000 ml @ 1,000 mls/hr 1X ONCE 03/06/19 06:15 03/06/19 07:14 DC 03/06/19 06:16 1,000 MLS/HR (JOHANNY TAN MD) Allergies Allergies Allergies Coded Allergies Type Severity Reaction Last Updated Verified No Known Drug Allergies 10/23/18 No (JOHANNY TAN MD) Physical Exam Physical Exam Constitutional: Well developed, well nourished, no acute distress, non-toxic appearance. [] HENT: Normocephalic, atraumatic, bilateral external ears normal, oropharynx m oist, no oral exudates, nose normal. [] Eyes: PERRLA, EOMI, conjunctiva normal, no discharge. [] Neck: Normal range of motion, no tenderness, supple Cardiovascular:Heart rate regular rhythm, no murmur [] Lungs & Thorax: Bilateral breath sounds clear to auscultation [] Abdomen: Bowel sounds normal, soft, no tenderness, no masses, no pulsatile masses. [] Skin: Warm, dry, no erythema, no rash. [] Back: No tenderness, no CVA tenderness. [] Extremities: No tenderness, no edema. [] Neurologic: Alert and oriented X 3, no focal deficits noted. [] Psychologic: Affect normal, judgement normal, mood normal. [] (KATARINA HILL MD) Current Patient Data Vital Signs Vital Signs Date Time Temp Pulse Resp B/P (MAP) Pulse Ox O2 Delivery O2 Flow Rate FiO2 03/06/19 06:26 82 18 123/65 (84) 97 Room Air 03/06/19 05:24 100.5 100.5 (JOHANNY TAN MD) Lab Values Laboratory Tests Test 03/06/19 05:05 03/06/19 05:10 03/06/19 05:49 03/06/19 07:24 Influenza Type A Antigen Negative (NEGATIVE) Influenza Type B Antigen Negative (NEGATIVE) White Blood Count 9.7 x10^3/uL (4.0-11.0) Red Blood Count 4.64 x10^6/uL (3.50-5.40) Hemoglobin 13.5 g/dL (12.0-15.5) Hematocrit 40.3 % (36.0-47.0) Mean Corpuscular Volume 87 fL (79-100) Mean Corpuscular Hemoglobin 29 pg (25-35) Mean Corpuscular Hemoglobin Concent 34 g/dL (31-37) Red Cell Distribution Width 14.0 % (11.5-14.5) Platelet Count 196 x10^3/uL (140-400) Neutrophils (%) (Auto) 82 % (31-73) H Lymphocytes (%) (Auto) 7 % (24-48) L Monocytes (%) (Auto) 9 % (0-9) Eosinophils (%) (Auto) 1 % (0-3) Basophils (%) (Auto) 1 % (0-3) Neutrophils # (Auto) 8.0 x10^3/uL (1.8-7.7) H Lymphocytes # (Auto) 0.7 x10^3/uL (1.0-4.8) L Monocytes # (Auto) 0.9 x10^3/uL (0.0-1.1) Eosinophils # (Auto) 0.1 x10^3/uL (0.0-0.7) Basophils # (Auto) 0.0 x10^3/uL (0.0-0.2) Sodium Level 145 mmol/L (136-145) Potassium Level 3.3 mmol/L (3.5-5.1) L Chloride Level 108 mmol/L (98-107) H Carbon Dioxide Level 25 mmol/L (21-32) Anion Gap 12 (6-14) Blood Urea Nitrogen 22 mg/dL (7-20) H Creatinine 1.0 mg/dL (0.6-1.0) Estimated GFR (Cockcroft-Gault) 55.0 BUN/Creatinine Ratio 22 (6-20) H Glucose Level 131 mg/dL (70-99) H Lactic Acid Level 3.1 mmol/L (0.4-2.0) H 2.1 mmol/L (0.4-2.0) H Calcium Level 8.2 mg/dL (8.5-10.1) L Total Bilirubin 0.7 mg/dL (0.2-1.0) Aspartate Amino Transferase (AST) 25 U/L (15-37) Alanine Aminotransferase (ALT) 19 U/L (14-59) Alkaline Phosphatase 60 U/L (46-116) Total Protein 6.9 g/dL (6.4-8.2) Albumin 3.3 g/dL (3.4-5.0) L Albumin/Globulin Ratio 0.9 (1.0-1.7) L Urine Collection Type Unknown Urine Color Yellow Urine Clarity Clear Urine pH 5.5 Urine Specific [place] 1.025 Urine Protein Negative mg/dL (NEG-TRACE) Urine Glucose (UA) Negative mg/dL (NEG) Urine Ketones (Stick) Negative mg/dL (NEG) Urine Blood Small (NEG) Urine Nitrite Negative (NEG) Urine Bilirubin Small (NEG) Urine Urobilinogen Dipstick 1.0 mg/dL (0.2 mg/dL) Urine Leukocyte Esterase Negative (NEG) Urine RBC 0 /HPF (0-2) Urine WBC 1-4 /HPF (0-4) Urine Squamous Epithelial Cells Few /LPF Urine Bacteria 0 /HPF (0-FEW) Urine Hyaline Casts Moderate /HPF Urine Granular Casts Moderate /HPF Urine Mucus Marked /LPF Laboratory Tests 03/06/19 05:10 Laboratory Tests 03/06/19 05:10 (JOHANNY TAN MD) Lab Values Laboratory Tests Test 03/06/19 05:05 03/06/19 05:10 Influenza Type A Antigen Negative (NEGATIVE) Influenza Type B Antigen Negative (NEGATIVE) White Blood Count 9.7 x10^3/uL (4.0-11.0) Red Blood Count 4.64 x10^6/uL (3.50-5.40) Hemoglobin 13.5 g/dL (12.0-15.5) Hematocrit 40.3 % (36.0-47.0) Mean Corpuscular Volume 87 fL (79-100) Mean Corpuscular Hemoglobin 29 pg (25-35) Mean Corpuscular Hemoglobin Concent 34 g/dL (31-37) Red Cell Distribution Width 14.0 % (11.5-14.5) Platelet Count 196 x10^3/uL (140-400) Neutrophils (%) (Auto) 82 % (31-73) H Lymphocytes (%) (Auto) 7 % (24-48) L Monocytes (%) (Auto) 9 % (0-9) Eosinophils (%) (Auto) 1 % (0-3) Basophils (%) (Auto) 1 % (0-3) Neutrophils # (Auto) 8.0 x10^3/uL (1.8-7.7) H Lymphocytes # (Auto) 0.7 x10^3/uL (1.0-4.8) L Monocytes # (Auto) 0.9 x10^3/uL (0.0-1.1) Eosinophils # (Auto) 0.1 x10^3/uL (0.0-0.7) Basophils # (Auto) 0.0 x10^3/uL (0.0-0.2) Sodium Level 145 mmol/L (136-145) Potassium Level 3.3 mmol/L (3.5-5.1) L Chloride Level 108 mmol/L (98-107) H Carbon Dioxide Level 25 mmol/L (21-32) Anion Gap 12 (6-14) Blood Urea Nitrogen 22 mg/dL (7-20) H Creatinine 1.0 mg/dL (0.6-1.0) Estimated GFR (Cockcroft-Gault) 55.0 BUN/Creatinine Ratio 22 (6-20) H Glucose Level 131 mg/dL (70-99) H Lactic Acid Level 3.1 mmol/L (0.4-2.0) H Calcium Level 8.2 mg/dL (8.5-10.1) L Total Bilirubin Pending Aspartate Amino Transferase (AST) Pending Alanine Aminotransferase (ALT) Pending Alkaline Phosphatase Pending Total Protein Pending Albumin Pending Albumin/Globulin Ratio Pending Laboratory Tests 03/06/19 05:10 Laboratory Tests 03/06/19 05:10 (KATARINA HILL MD) EKG EKG [] (KATARINA HILL MD) Radiology/Procedures Radiology/Procedures [] (KATARINA HILL MD) Course & Med Decision Making Course & Med Decision Making Pertinent Labs and Imaging studies reviewed. (See chart for details) []Patient is a 68 year old female presents emergency partly complaints of myalgias, headache, fever. Patient describes nausea, vomiting, abdominal pain which started on however subsequently resolved. She states over the last couple days she has not been able to kick her symptoms. She states she's had limited oral intake, states she just not been hungry. She denies any current diarrhea at this time. Denies any abdominal pain on examination today. She does describe a cough with mild phlegm production. Nothing makes her symptoms worse, nothing makes her symptoms better. Patient states she's not taking her home medications at least 3 days. Care transferred to Dr. Tan at shift changes - discussed case. (KATARINA HILL MD) Course & Med Decision Making Signout at 6 AM chest x-ray shows a subtle right-sided infiltrate lactic was mildly elevated we repeated that and it was clearing nicely after 2 L of fluid dose of IV antibiotics was given vital signs are normal except for low-grade temperature patient was feeling better after treatment I think she is a candidate for outpatient she agrees strict work. Precautions were advised and I recommended a repeat chest x-ray in 1 month to ensure clearance. rx for doxycyline. (JOHANNY TAN MD) Dragon Disclaimer Dragon Disclaimer This electronic medical record was generated, in whole or in part, using a voice recognition dictation system. (KATARINA HILL MD) Departure Departure Impression: Primary Impression: Pneumonia Disposition: HOME, SELF-CARE Condition: STABLE Referrals: CARMITA NUNEZ MD (PCP) Scripts Doxycycline Hyclate (DOXYCYCLINE HYCLATE) 100 Mg Tablet 1 TAB PO BID, #20 TAB Prov: JOHANNY TAN MD 03/06/19 KATARINA HILL MD Mar 06, 2019 05:00 JOHANNY TAN MD Mar 06, 2019 08:04
[2019-03-06] MEDS ORDERED: IV NORMAL SALINE 1000ML BAG 1,000 ML IV ONE ×2 (05:15→06:15)
--- NOTE | 2019-03-06 05:25 | RAD ---
AP chest. HISTORY: Fever, flulike symptoms AP view was taken of the chest. Heart is normal in size. There are slight hazy infiltrates mainly in the right midlung which can be viral or atypical pneumonia. There is no pleural effusion. IMPRESSION: 1. Minimal hazy infiltrates mainly in the right lung. Electronically signed by: Anthony Neal MD (03/06/2019 5:22 AM) [facility]
[2019-03-06 05:29] LABS: BASO % 1 % (0-3); EOS # 0.1 x10^3/uL (0.0-0.7); EOS % 1 % (0-3); HEMATOCRIT 40.3 % (36.0-47.0); HEMOGLOBIN 13.5 g/dL (12.0-15.5); LYMPH # 0.7 x10^3/uL (1.0-4.8); LYMPH % 7 % (24-48); MEAN CORPUSCULAR HEMOGLOBIN 29 pg (25-35); MEAN CORPUSCULAR HGB CONC 34 g/dL (31-37); MEAN CORPUSCULAR VOLUME 87 fL (79-100); MONO # 0.9 x10^3/uL (0.0-1.1); MONO % 9 % (0-9); NEUT % 82 % (31-73); PLATELET COUNT 196 x10^3/uL (140-400); RED BLOOD COUNT 4.64 x10^6/uL (3.50-5.40); WHITE BLOOD COUNT 9.7 x10^3/uL (4.0-11.0)
[2019-03-06] MEDS ORDERED: ACETAMINOPHEN 500 MG TABLET PO ONE (05:30)
[2019-03-06 05:33] LABS: INFLUENZA A PATIENT NEGATIVE (NEGATIVE); INFLUENZA B PATIENT NEGATIVE (NEGATIVE)
[2019-03-06 05:40] LABS: CALCIUM 8.2 mg/dL (8.5-10.1); POTASSIUM 3.3 mmol/L (3.5-5.1)
[2019-03-06 05:54] LABS: ALBUMIN 3.3 g/dL (3.4-5.0); ALBUMIN/GLOBULIN RATIO 0.9 (1.0-1.7); TOTAL BILIRUBIN 0.7 mg/dL (0.2-1.0); TOTAL PROTEIN 6.9 g/dL (6.4-8.2)
[2019-03-06] MEDS ORDERED: KETOROLAC 30 MG/ML VIAL. IV ONE (06:00)
[2019-03-06 06:07] LABS: BILIRUBIN,URINE SMALL (NEG); CLARITY,URINE CLEAR; COLOR,URINE YELLOW; NITRITE,URINE NEGATIVE (NEG); PH,URINE 5.5; PROTEIN,URINE NEGATIVE (NEG-TRACE)
[2019-03-06 06:20] LABS: BACTERIA,URINE 0 /HPF (0-FEW); RBC,URINE 0 /HPF (0-2)
[2019-03-06 06:21] LABS: SQUAMOUS EPITHELIAL CELL,UR FEW /LPF
[2019-03-06 06:23] LABS: GRANULAR CASTS,URINE MODERATE /HPF; HYALINE CASTS, URINE MODERATE /HPF
[2019-03-06] MEDS ORDERED: DOXYCYCLINE HYCLATE 100 MG TABLET PO ONE (06:30)
[2019-03-06] MEDS ORDERED: cefTRIAXone IV Push 1 GM VIAL. IVP ONE (06:30)
[2019-03-06] MEDS ORDERED: DOXY100T PO (07:23)
[2019-03-06 07:56] VITALS: BP 108/61
== END 2019-03-06 08:20 | disposition home or self-care (01) ==
LOC: ER 04:45
DX: J18.9 Pneumonia, unspecified organism (principal); I10 Essential (primary) hypertension; R11.2 Nausea with vomiting, unspecified
CPT/HCPCS: 36415; 71045; 80053; 81001; 83605; 85025; 87040; 87804; 96361; 96374; 96375; 99285; J0696; J1885; J7030

== ENCOUNTER → 2019-03-21 | Outpatient (CLI) | payer OTHER ==
[2019-03-06 07:56] VITALS: BP 108/61
[~2019-03-21] MED LIST changes: +DOXY100T PO
--- NOTE | 2019-03-21 14:51 | RAD ---
EXAM: CHEST 2 VIEWS. HISTORY: Pneumonia. COMPARISON: 03/06/2019. FINDINGS: Frontal and lateral views of the chest are obtained. There are no confluent infiltrates. There is no pneumothorax or pleural effusion. The heart is mildly enlarged. There are atherosclerotic calcifications of the aorta. Cholecystectomy clips are noted. IMPRESSION: 1. Mild cardiomegaly. Electronically signed by: Chidi Monk MD (03/21/2019 2:48 PM) [facility]
== END | disposition home or self-care (01) ==
LOC: RAD 12:46
PROVIDERS: ATTEND Nurse Practitioner Family
DX: J18.9 Pneumonia, unspecified organism (principal); I70.0 Atherosclerosis of aorta; I51.7 Cardiomegaly; Z90.49 Acquired absence of other specified parts of digestive tract
CPT/HCPCS: 71046

== ENCOUNTER → 2019-10-11 | Outpatient (CLI) | payer OTHER ==
[2019-10-11 09:03] LABS: BASO % 1 % (0-3); EOS # 0.2 x10^3/uL (0.0-0.7); EOS % 4 % (0-3); HEMATOCRIT 42.2 % (36.0-47.0); HEMOGLOBIN 14.3 g/dL (12.0-15.5); LYMPH # 1.1 x10^3/uL (1.0-4.8); LYMPH % 21 % (24-48); MEAN CORPUSCULAR HEMOGLOBIN 30 pg (25-35); MEAN CORPUSCULAR HGB CONC 34 g/dL (31-37); MEAN CORPUSCULAR VOLUME 87 fL (79-100); MONO # 0.5 x10^3/uL (0.0-1.1); MONO % 11 % (0-9); NEUT # 3.1 x10^3/uL (1.8-7.7); NEUT % 63 % (31-73); PLATELET COUNT 235 x10^3/uL (140-400); RED BLOOD COUNT 4.85 x10^6/uL (3.50-5.40); RED CELL DISTRIBUTION WIDTH 14.1 % (11.5-14.5)
[2019-10-11 09:42] LABS: ALBUMIN 3.5 g/dL (3.4-5.0); CALCIUM 8.7 mg/dL (8.5-10.1); CREATININE 0.8 mg/dL (0.6-1.0); GFR 70.9; TOTAL BILIRUBIN 0.8 mg/dL (0.2-1.0); TOTAL PROTEIN 7.1 g/dL (6.4-8.2)
[2019-10-11 09:48] LABS: CHOLESTEROL/HDL RATIO 2.8
[2019-10-11 09:55] LABS: FREE T4 1.27 ng/dL (0.76-1.46); THYROID STIM HORMONE (TSH) 1.6 uIU/mL (0.358-3.74)
== END | disposition home or self-care (01) ==
LOC: LAB 08:16
PROVIDERS: ATTEND Nurse Practitioner Family
DX: I10 Essential (primary) hypertension (principal); E03.9 Hypothyroidism, unspecified
CPT/HCPCS: 36415; 80053; 80061; 82306; 84439; 84443; 85025

== ENCOUNTER → 2019-11-18 | Outpatient (CLI) | payer OTHER ==
[~2019-11-18] MED LIST changes: -NADO40TA PO; +NADO40TA2 PO
--- NOTE | 2019-11-18 16:09 | RAD ---
EXAM: BILATERAL DIGITAL 3D SCREENING MAMMOGRAPHY. HISTORY: Routine mammographic screening. TECHNIQUE: Bilateral digital 3D and tomographic images were obtained in CC and MLO projections. Computer-aided detection was applied. COMPARISON: 07/06/2018, 07/01/2017, 05/13/2016. COMPOSITION: B. There are scattered areas of fibroglandular density. FINDINGS: There is a developing density laterally and posteriorly on the left MLO view. See annotations. Scattered calcifications on the right appear benign. There is no suspicious finding on the right. BI-RADS CATEGORY 0: Incomplete--Needs Additional Imaging Evaluation. RECOMMENDATION: 1. Spot compression and exaggerated lateral CC view of a developing density superiorly on the left MLO view. See annotations. Sonography of necessary. Electronically signed by: Chidi Monk MD (11/18/2019 4:05 PM) [id number]
== END | disposition home or self-care (01) ==
LOC: MAMMO 13:20
PROVIDERS: ATTEND Nurse Practitioner Family
DX: Z12.31 Encounter for screening mammogram for malignant neoplasm of breast (principal); N64.89 Other specified disorders of breast
CPT/HCPCS: 77063; 77067

== ENCOUNTER → 2019-12-08 | Outpatient (CLI) | payer OTHER ==
--- NOTE | 2019-12-08 15:34 | RAD ---
DATE: 12/08/2019 12:38 PM EXAM: MAMMO PHU DIAG LT HISTORY: Screening call back for asymmetry in the upper outer left breast COMPARISON: 05/04/2014, 05/05/2015, 05/13/2016, 07/01/2017, 07/06/2018 11/18/2019 TECHNIQUE: Full-field left ML and CC views, and spot compression views of the left breast in the CC and MLO projections were obtained. FINDINGS: Breast Density: SCATTERED The breast parenchyma shows scattered fibroglandular densities. Breast parenchyma level B The questioned developing asymmetry changed configuration in a pattern suggestive of overlap of dense fibroglandular tissue. No persistent mammographic abnormality was observed. IMPRESSION: No mammographic evidence of malignancy. BI-RADS CATEGORY: 1 NEGATIVE RECOMMENDED FOLLOW-UP: 12M 12 MONTH FOLLOW-UP Annual screening mammography is recommended, unless clinically indicated sooner based on symptoms or change in physical exam. PQRS compliance statement: Patient information was entered into a reminder system with a target due date for the next mammogram. Mammography is a sensitive method for finding small breast cancers, but it does not detect them all and is not a substitute for careful clinical examination. A negative mammogram does not negate a clinically suspicious finding and should not result in delay in biopsying a clinically suspicious abnormality. "Our facility is accredited by the [employer] Mammography Program."
== END | disposition home or self-care (01) ==
LOC: MAMMO 12:32
PROVIDERS: ATTEND Nurse Practitioner Family
DX: R92.2 Inconclusive mammogram (principal)
CPT/HCPCS: 77065; G0279; 77061

== ENCOUNTER 2020-08-05 14:20 | Emergency (ER) | payer OTHER ==
[~2020-08-05] VITALS: Ht 162.6 cm; Wt 63.0 kg
[2020-08-05 14:39] VITALS: BP 148/88
[2020-08-05 14:49] LABS: BILIRUBIN,URINE NEGATIVE (NEG); CLARITY,URINE CLEAR; COLOR,URINE YELLOW; NITRITE,URINE NEGATIVE (NEG); PH,URINE 6.5 (<5.0-8.0); PROTEIN,URINE 30 mg/dL (NEG-TRACE); UROBILINOGEN,URINE 0.2 mg/dL (0.2 mg/dL)
[2020-08-05 15:00] LABS: RBC,URINE TNTC /HPF (0-2); WBC,URINE >40 /HPF (0-4)
[2020-08-05 15:01] LABS: BACTERIA,URINE 0 /HPF (0-FEW)
[2020-08-05] MEDS ORDERED: CEPH500T PO (15:44)
--- NOTE | 2020-08-05 15:44 | PHYS DOC ---
Past Medical History Past Medical History: Arthritis, Constipation, Hypertension, Hypothyroid, Kidney Stone, Pancreatitis Additional Past Medical Histor: [place] Past Surgical History: Cholecystectomy Additional Past Surgical Histo: Kidney Stents x3, Rt shoulder surgery, and left carpal tunnel Smoking Status: Never Smoker Alcohol Use: None Drug Use: None General Adult EDM: Chief Complaint: PAIN ON URINATION HPI: HPI: Patient is a 69 year old female who presents to the ED today complaining of urgency and dysuria, symptoms of been going on for a week, patient states she just completed a 5-day treatment of UTI with Macrobid with no relief. Denies any fever. Review of Systems: Review of Systems: Constitutional: Denies fever or chills. [] GI: Denies abdominal pain, nausea, vomiting, bloody stools or diarrhea. [] : Reports dysuria and frequency Musculoskeletal: Denies back pain or joint pain. [] Integument: Denies rash. [] Neurologic: Denies headache, focal weakness or sensory changes. [] Psychiatric: Denies depression or anxiety. [] Heart Score: C/O Chest Pain: N/A Risk Factors: Risk Factors: DM, Current or recent (<one month) smoker, HTN, HLP, family h istory of CAD, obesity. Risk Scores: Score 0 - 3: 2.5% MACE over next 6 weeks - Discharge Home Score 4 - 6: 20.3% MACE over next 6 weeks - Admit for Clinical Observation Score 7 - 10: 72.7% MACE over next 6 weeks - Early Invasive Strategies Allergies: Allergies: Allergies Coded Allergies Type Severity Reaction Last Updated Verified No Known Drug Allergies 10/23/18 No Physical Exam: PE: Constitutional: Well developed, well nourished, no acute distress, non-toxic appearance. [] Abdomen: Bowel sounds normal, soft, no tenderness, no masses, no pulsatile masses. [] Skin: Warm, dry, no erythema, no rash. [] Back: No tenderness, no CVA tenderness. [] Extremities: No tenderness, no cyanosis, no clubbing, ROM intact, no edema. [] Neurologic: Alert and oriented X 3, normal motor function, normal sensory function, no focal deficits noted. [] Psychologic: Affect normal, judgement normal, mood normal. [] Current Patient Data: Labs: Laboratory Tests Test 08/05/20 14:24 Urine Collection Type Unknown Urine Color Yellow Urine Clarity Clear Urine pH 6.5 (<5.0-8.0) Urine Specific [place] 1.010 (1.000-1.030) Urine Protein 30 mg/dL (NEG-TRACE) Urine Glucose (UA) Negative mg/dL (NEG) Urine Ketones (Stick) Negative mg/dL (NEG) Urine Blood Large (NEG) Urine Nitrite Negative (NEG) Urine Bilirubin Negative (NEG) Urine Urobilinogen Dipstick 0.2 mg/dL (0.2 mg/dL) Urine Leukocyte Esterase Large (NEG) Urine RBC Tntc /HPF (0-2) Urine WBC >40 /HPF (0-4) Urine Bacteria 0 /HPF (0-FEW) Urine Mucus Mod /LPF Vital Signs: Vital Signs Date Time Temp Pulse Resp B/P (MAP) Pulse Ox O2 Delivery O2 Flow Rate FiO2 08/05/20 14:39 97.8 88 18 148/88 (108) 99 Room Air 97.8 EKG: EKG: [] Radiology/Procedures: Radiology/Procedures: [] Course & Med Decision Making: Course & Med Decision Making Pertinent Labs and Imaging studies reviewed. (See chart for details) This is a 69-year-old female patient presented to the ED today complaining of dysuria and frequency for a week. She just finished a 5-day dose of Macrobid with no relief. Urine shows UTI. Will be put on cephalexin. Dragon Disclaimer: Jj Disclaimer: This electronic medical record was generated, in whole or in part, using a voice recognition dictation system. Departure Departure Impression: Primary Impression: Urinary tract infection Qualified Codes: N39.0 - Urinary tract infection, site not specified Disposition: 01 [place] HOME SELF CARE/HOMELESS Condition: STABLE Referrals: CHAYO VALENCIA APRN (PCP) follow up with your doctor in 1-2 weeks Patient Instructions: Urinary Tract Infection Additional Instructions: You have urinary tract infection, we put you on cephalexin, ensure you complete it. Push fluids. Follow-up with your doctor in 1 week. Come back to the ED at any point symptoms worsen Scripts Cephalexin (CEPHALEXIN) 500 Mg Tablet 1 TAB PO BID, #14 TAB Prov: CALEB WOODARD APRN 08/05/20 CALEB WOODARD APRN Aug 05, 2020 15:44
== END 2020-08-05 15:51 | disposition home or self-care (01) ==
LOC: ER 14:20
DX: N39.0 Urinary tract infection, site not specified (principal); R35.0 Frequency of micturition; M19.90 Unspecified osteoarthritis, unspecified site; I10 Essential (primary) hypertension; E03.9 Hypothyroidism, unspecified; K86.1 Other chronic pancreatitis; Z87.442 Personal history of urinary calculi; Z90.49 Acquired absence of other specified parts of digestive tract; Z98.890 Other specified postprocedural states
CPT/HCPCS: 81001; 87086; 99283

== ENCOUNTER → 2021-02-06 | Outpatient (CLI) | payer OTHER ==
[~2021-02-06] MED LIST changes: +CEPH500T PO
--- NOTE | 2021-02-06 16:43 | RAD ---
Bilateral digital screening 2-D and 3-D (digital breast tomosynthesis) mammogram: Reason for examination: Routine screening. Comparison: Mammograms from 11/18/2019 and 07/06/2018. Interpretation was made with the benefit of CAD. FINDINGS: Breast density: Category B. There are scattered areas of fibroglandular density. No suspicious breast mass, malignant appearing calcifications, or architectural distortion is seen. IMPRESSION: No evidence of malignancy. Assessment: BI-RADS 1. Negative. Recommendation: Routine screening mammograms. The patient will receive a letter with the results in the mail. Patient information will be entered i nto the mammography reminder system with a target recall date for the next mammogram. A reminder joe er will be generated. Electronically signed by: Tia Farah MD (02/06/2021 4:41 PM) [id number]
== END ==
LOC: MAMMO 10:45
PROVIDERS: ATTEND Nurse Practitioner Family
DX: Z12.31 Encounter for screening mammogram for malignant neoplasm of breast (principal)
CPT/HCPCS: 77063; 77067

== ENCOUNTER 2021-06-25 09:52 | Day surgery (SDC) | payer OTHER, MEDICARE ==
[~2021-06-25] VITALS: Ht 160 cm; Wt 65.9 kg
[~2021-06-25 09:52] MED LIST changes: +BETA1TAB10 PO; +GABA800T5 PO; +HYDROmorphone 2 MG/ML INJ. IVP PRN; +IV RINGERS,LACTATED 1000ML 1,000 ML IV SCH; +MORPHINE SULFATE 2 MG/ML INJ. IVP PRN; +PROCHLORPERAZINE 10 MG/2 ML VIAL. IVP PRN; +[UNRECOGNIZED DRUG - CODE] PO; +fentaNYL PF VIAL 100 MCG/2 ML VIAL IVP PRN
[2021-06-25 10:22] VITALS: BP 169/79
[2021-06-25] MEDS ORDERED: PROPOFOL 10 MG/ML (20ML) VIAL. IV ONE (10:54)
[2021-06-25] MEDS ORDERED: ONDANSETRON PF 4 MG/2 ML VIAL. ONE (10:54)
[2021-06-25] MEDS ORDERED: SEVOFLURANE 16 TO 30 MINUTES. IH ONE (10:54)
[2021-06-25] MEDS ORDERED: DEXAMETHASONE SOD PHOS 4 MG/ML VIAL ONE (10:54)
[2021-06-25] MEDS ORDERED: fentaNYL PF VIAL 100 MCG/2 ML VIAL ONE (10:55)
[2021-06-25] MEDS ORDERED: LIDOCAINE 1% Multi-Dose 20 ML VIAL. ONE ×2 (10:56→17:08)
[2021-06-25] MEDS ORDERED: BACITRACIN TOPICAL OINT PACKET. TP ONE (10:57)
[2021-06-25] MEDS ORDERED: ePHEDrine PF IN SALINE 50 MG/10 ML SYRINGE. IV ONE (11:22)
[2021-06-25] MEDS ORDERED: LIDOCAINE 1%/EPI 1:100,000 20 ML VIAL. ONE (11:30)
--- NOTE | 2021-06-25 12:12 | PDOC4 ---
OPERATIVE NOTE Date: Date: Jun 25, 2021 Pre-Op Diagnosis: Right thumb tenosynovitis Post-Op Diagnosis: Same Procedure Performed: Release of right thumb trigger finger, CPT 33997 Surgeon: Deepali Mccall MD Anesthesia Type: General LMA Blood Loss: 1 cc Specimans Obtained: None Findings: See operative note Complications: None Operative Note: Informed consent was obtained in the perioperative holding area. The risk of bleeding, infection, stiffness, pain, incomplete release, recurrence, injury to surrounding tendons, arteries, nerves were discussed with the patient. She understood the risks and desired to proceed. The patient was brought to the operating room and placed on the OR table in the supine position. A timeout was performed confirming the correct patient and correct procedure. IV antibiotics were given. SCDs were placed. General anesthesia was administered. The right hand was prepped with ChloraPrep and draped in a sterile fashion. A tourniquet was applied. The right upper extremity was exsanguinated with Esmarch bandage. The base of the right thumb at the palmar crease was injected with 4 mL of 1% lidocaine and 1: 100,000 epinephrine. A #15 scalpel was used to make an incision at the site. The dissection was deepened with tenotomy scissors until the tenosynovium of the FPL tendon was encountered. A #15 scalpel was used to make a small opening in the tenosynovium and tenotomy scissors were used to release the tenosynovium longitudinally both proximally and distally. Retractors were used to lift the FPL and check for surrounding pathology. None was encountered. The wound was irrigated with saline. The tourniquet was released and hemostasis was assured. 4-0 nylon horizontal interrupted mattress sutures were placed to approximate the incision. Antibiotic ointment, Xeroform gauze, 4 x 4 gauze, and Coban were applied. The patient tolerated procedure well and was transferred to PACU in stable condition. DEEPALI MCCALL MD Jun 25, 2021 12:12
[2021-06-25 12:22] VITALS: BP 145/73
== END 2021-06-25 12:50 | disposition home or self-care (01) ==
LOC: SURG 09:52
PROVIDERS: ATTEND Plastic Surgery
DX: M65.841 Other synovitis and tenosynovitis, right hand (principal); M65.311 Trigger thumb, right thumb; I10 Essential (primary) hypertension; Z86.73 Personal history of transient ischemic attack (TIA), and cerebral infarction without residual deficits; Z87.440 Personal history of urinary (tract) infections; Z79.899 Other long term (current) drug therapy; Z98.890 Other specified postprocedural states; Z90.49 Acquired absence of other specified parts of digestive tract; Z72.89 Other problems related to lifestyle
CPT/HCPCS: 26055; A4930; A6402; J0690; J1100; J2405; J2704; J3010; J3490; A4657; A6452

== ENCOUNTER → 2021-07-16 | Outpatient (CLI) | payer OTHER, MEDICARE ==
[2021-06-25 12:22] VITALS: BP 145/73
[~2021-07-16] MED LIST changes: -HYDROmorphone 2 MG/ML INJ. IVP PRN; -IV RINGERS,LACTATED 1000ML 1,000 ML IV SCH; -MORPHINE SULFATE 2 MG/ML INJ. IVP PRN; -PROCHLORPERAZINE 10 MG/2 ML VIAL. IVP PRN; -fentaNYL PF VIAL 100 MCG/2 ML VIAL IVP PRN
[2021-07-16 10:00] LABS: BASO % 1 % (0-3); EOS # 0.3 x10^3/uL (0.0-0.7); EOS % 5 % (0-3); HEMATOCRIT 41.1 % (36.0-47.0); LYMPH # 1.1 x10^3/uL (1.0-4.8); LYMPH % 17 % (24-48); MEAN CORPUSCULAR HEMOGLOBIN 30 pg (25-35); MEAN CORPUSCULAR HGB CONC 34 g/dL (31-37); MEAN CORPUSCULAR VOLUME 89 fL (79-100); MONO # 0.6 x10^3/uL (0.0-1.1); MONO % 10 % (0-9); NEUT # 4.3 x10^3/uL (1.8-7.7); NEUT % 68 % (31-73); PLATELET COUNT 246 x10^3/uL (140-400); RED BLOOD COUNT 4.63 x10^6/uL (3.50-5.40); RED CELL DISTRIBUTION WIDTH 13.8 % (11.5-14.5); WHITE BLOOD COUNT 6.3 x10^3/uL (4.0-11.0)
[2021-07-16 10:14] LABS: THYROID STIM HORMONE (TSH) 0.873 uIU/mL (0.358-3.74)
[2021-07-16 10:17] LABS: ALBUMIN 3.8 g/dL (3.4-5.0); CALCIUM 8.9 mg/dL (8.5-10.1); CREATININE 0.8 mg/dL (0.6-1.0); GFR 70.7; POTASSIUM 3.8 mmol/L (3.5-5.1); TOTAL BILIRUBIN 1.2 mg/dL (0.2-1.0); TOTAL PROTEIN 7.5 g/dL (6.4-8.2)
[2021-07-16 10:18] LABS: CHOLESTEROL/HDL RATIO 2.5
== END ==
LOC: LAB 09:12
PROVIDERS: ATTEND Nurse Practitioner Family
DX: I10 Essential (primary) hypertension (principal); E03.9 Hypothyroidism, unspecified
CPT/HCPCS: 36415; 80053; 80061; 82306; 84439; 84443; 85025